=== PATIENT | male | born 1970 | race African-American/Black ===

== ENCOUNTER 2018-07-02 09:03 | Emergency (ER) | payer SELFPAY ==
[2018-07-02] MEDS ORDERED: LIDOCAINE 1%/EPINEPHRINE INJ 20 ML VIAL INJ ONE (10:10)
[2018-07-02] MEDS ORDERED: CEPHALEXIN 500 MG CAPSULE PO ONE (12:17)
[2018-07-02] MEDS ORDERED: DIPH/PERTUSS(ACELL)/TETANUS VAC/PF 0.5 ML SYR (>=10YO) IM ONE (12:17)
--- NOTE | 2018-07-02 12:17 | ER Document Report ---
ED General - General Chief Complaint: Abscess Stated Complaint: POSSIBLE ABSCESS Time Seen by Provider: 07/02/18 09:41 TRAVEL OUTSIDE OF THE [place] IN LAST 30 DAYS: No - HPI Patient complains to provider of: Bilateral shoulder abscesses Notes: Patient with 2 areas on the bilateral deltoids are consistent with an abscess states present for approximately 24-48 hours. Patient denies any IV drug use denies any skin popping. Patient states history of abscesses in the past. Patient otherwise resting comfortably upon my evaluation. - Related Data Allergies/Adverse Reactions: No Known Allergies Allergy (Verified 07/02/18 09:24) Past Medical History - Social History Smoking Status: Current Every Day Smoker Chew tobacco use (# tins/day): No Frequency of alcohol use: Occasional Drug Abuse: Marijuana Family History: Reviewed & Not Pertinent Patient has suicidal ideation: No Patient has homicidal ideation: No Renal/ Medical History: Denies: Hx Peritoneal Dialysis Past Surgical History: Reports: Hx Abdominal Surgery Review of Systems - Review of Systems Constitutional: No symptoms reported EENT: No symptoms reported Cardiovascular: No symptoms reported Respiratory: No symptoms reported Gastrointestinal: No symptoms reported Genitourinary: No symptoms reported Male Genitourinary: No symptoms reported Musculoskeletal: No symptoms reported Skin: Other - Abscess Hematologic/Lymphatic: No symptoms reported Neurological/Psychological: No symptoms reported -: Yes All other systems reviewed and negative Physical Exam - Vital signs Vitals: Temp Pulse Resp BP Pulse Ox 98.9 F 86 20 143/92 H 97 07/02/18 09:07 07/02/18 09:07 07/02/18 09:07 07/02/18 09:07 07/02/18 09:07 Interpretation: Normal - General General appearance: Appears well, Alert - HEENT Head: Normocephalic, Atraumatic Eyes: Normal Pupils: PERRL - Respiratory Respiratory status: No respiratory distress Chest status: Nontender Breath sounds: Normal Chest palpation: Normal - Cardiovascular Rhythm: Regular Heart sounds: Normal auscultation Murmur: No - Abdominal Inspection: Normal Distension: No distension Bowel sounds: Normal Tenderness: Nontender Organomegaly: No organomegaly - Back Back: Normal, Nontender - Extremities General upper extremity: Nontender, Normal color, Normal ROM, Normal temperature. No: Normal inspection - Patient with 2 areas of bilateral deltoids General lower extremity: Normal inspection, Nontender, Normal color, Normal ROM, Normal temperature, Normal weight bearing. No: Shravan's sign - Neurological Neuro grossly intact: Yes Cognition: Normal Orientation: AAOx4 [place] Coma Scale Eye Opening: Spontaneous [place] Coma Scale Verbal: Oriented [place] Coma Scale Motor: Obeys Commands [place] Coma Scale Total: 15 Speech: Normal Motor strength normal: LUE, RUE, LLE, RLE Sensory: Normal - Psychological Associated symptoms: Normal affect, Normal mood - Skin Skin Temperature: Warm Skin Moisture: Dry Skin Color: Normal Course - Re-evaluation Re-evalutation: 07/02/18 20:42 i and d performed as noted pt sent home on kelfex - Vital Signs Vital signs: Temp Pulse Resp BP Pulse Ox 98.8 F 77 18 143/95 H 99 07/02/18 12:48 07/02/18 12:48 07/02/18 12:48 07/02/18 12:48 07/02/18 12:48 Procedures - Incision and Drainage Left Shoulder Type: Simple Anesthetic type: 1% Lidocaine w/epi mL's of anesthetic: 2 Blade size: 11 I&D procedure: Chlorprep applied Incision Method: Incision made by scalpel Amount/type of drainage: 1cc of pus flushed to clear Right Shoulder Type: Simple Anesthetic type: 1% Lidocaine w/epi mL's of anesthetic: 2 Blade size: 11 I&D procedure: Chlorprep applied Incision Method: Incision made by scalpel Amount/type of drainage: 1cc pus Discharge - Discharge Clinical Impression: Abscess of left arm, Abscess of right arm Condition: Good Disposition: HOME, SELF-CARE Instructions: Abscess ([facility]), Cephalexin ([facility]), Post Incision and Drainage Additional Instructions: Your evaluation today shows bilateral abscesses which were drained please take antibiotics as prescribed return to the ER symptoms worsen please keep the wound clean and dry. Prescriptions: Cephalexin Monohydrate [Keflex 500 mg Capsule] 500 mg PO Q6H 7 Days capsule
[2018-07-02 12:51] VITALS: BP 143/95
== END 2018-07-02 12:56 | disposition home or self-care (01) ==
LOC: ER 09:03
DX: L02.414 Cutaneous abscess of left upper limb (principal); L02.413 Cutaneous abscess of right upper limb; F17.200 Nicotine dependence, unspecified, uncomplicated; F12.10 Cannabis abuse, uncomplicated
CPT/HCPCS: 99283; 90471; 90715; 10061; J3490

== ENCOUNTER 2018-09-13 13:17 | Emergency (ER) | payer SELFPAY ==
--- NOTE | 2018-09-13 13:59 | ER Document Report ---
ED Medical Screen (RME) - General Chief Complaint: Abscess Stated Complaint: POSSIBLE SPIDER BITE Time Seen by Provider: 09/13/18 13:57 Mode of Arrival: Ambulatory Information source: Patient Notes: 48-year-old male with hepatitis C, history of IV drug use presents with an abscess on his right hip and left forearm that he noticed 1 week prior to arrival. Patient denies history of MRSA. He states his last IV injection was 6 months ago. He denies fever, chills, nausea, vomiting. I have greeted and performed a rapid initial assessment of this patient. A comprehensive ED assessment and evaluation of the patient, analysis of test results and completion of medical decision making process we will be contacted by additional ED providers. PHYSICAL EXAMINATION: Vital signs reviewed GENERAL: Well-appearing, well-nourished and in no acute distress. LUNGS: No respiratory distress Musculoskeletal: Normal range of motion NEUROLOGICAL: Normal speech, normal gait. PSYCH: Normal mood, normal affect. SKIN: Area of induration, fluctuant and tenderness of the right hip and left elbow. TRAVEL OUTSIDE OF THE [place] IN LAST 30 DAYS: No - HPI Onset: Last week Onset/Duration: Gradual, Persistent Quality of pain: Achy, Throbbing Severity: Moderate Pain Level: 1 Associated Symptoms: denies: Chest pain, Chills, Fever, Hurts to breath, Nausea Exacerbated by: Denies Relieved by: Denies Similar symptoms previously: No Recently seen / treated by doctor: No - Related Data Smoking: Cigarettes Frequency of alcohol use: None Drug Abuse: Heroin - Quit 6 months ago, Marijuana Allergies/Adverse Reactions: No Known Allergies Allergy (Verified 09/13/18 13:24) Past Medical History - Social History Frequency of alcohol use: Occasional Drug Abuse: Marijuana Renal/ Medical History: Denies: Hx Peritoneal Dialysis Past Surgical History: Reports: Hx Abdominal Surgery Physical Exam - Vital signs Vitals: Temp Pulse Resp BP Pulse Ox 99.2 F 95 18 114/69 100 09/13/18 13:46 09/13/18 13:46 09/13/18 13:46 09/13/18 13:46 09/13/18 13:46 Course - Vital Signs Vital signs: Temp Pulse Resp BP Pulse Ox 99.2 F 95 18 114/69 100 09/13/18 13:46 09/13/18 13:46 09/13/18 13:46 09/13/18 13:46 09/13/18 13:46
[2018-09-13 14:58] LABS: ABSOLUTE MONOCYTES (AUTO) 0.9 10^3/uL (0.1-1.4); ABSOLUTE NEUT (AUTO) 5.9 10^3/uL (1.7-8.2); BASOPHILS % (AUTO) 0.4 % (0-2); EOSINOPHILS % (AUTO) 0.5 % (0-6); HEMATOCRIT 43.7 % (37.9-51.0); HEMOGLOBIN 14.5 g/dL (13.5-17.0); LYMPHOCYTES % (AUTO) 22.4 % (13-45); MEAN CORPUSCULAR HEMOGLOBIN 26.3 pg (27.0-33.4); MEAN CORPUSCULAR HGB CONC 33.2 g/dL (32.0-36.0); MEAN CORPUSCULAR VOLUME 79 fl (80-97); MONOCYTES % (AUTO) 10.3 % (3-13); PLATELET COUNT 227 10^3/uL (150-450); RED BLOOD COUNT 5.51 10^6/uL (4.35-5.55); RED CELL DISTRIBUTION WIDTH 13.3 % (11.5-14.0); SEGMENTED NEUTROPHILS % (AUTO) 66.4 % (42-78); TOTAL CELLS COUNTED % (AUTO) 100 %; WHITE BLOOD COUNT 8.9 10^3/uL (4.0-10.5)
[2018-09-13] MEDS ORDERED: CEPHALEXIN 500 MG CAPSULE PO ONE (18:44)
[2018-09-13] MEDS ORDERED: SULFAMETHOXAZOLE/TRIMETHOPRIM 800-160 MG TABLET PO ONE (18:45)
--- NOTE | 2018-09-13 18:48 | ER Document Report ---
ED General - General Chief Complaint: Abscess Stated Complaint: POSSIBLE SPIDER BITE Time Seen by Provider: 09/13/18 13:57 Mode of Arrival: Ambulatory Information source: Patient Notes: 48-year-old male with hepatitis C, history of IV drug use presents with an abscess on his right hip and left forearm that he noticed 1 week prior to arrival. Patient denies history of MRSA. He states his last IV injection was 6 months ago. He denies fever, chills, nausea, vomiting. Patient does reports that he self lanced the abscess on his right hip and left forearm and did have purulent drainage expressed. TRAVEL OUTSIDE OF THE [place] IN LAST 30 DAYS: No - HPI Onset: Last week Onset/Duration: Gradual, Persistent Quality of pain: Throbbing Severity: Moderate Associated symptoms: denies: Body/muscle aches, Chills, Fever, Nausea, Vomiting, Shortness of breath Exacerbated by: Movement Relieved by: Denies Similar symptoms previously: Yes Recently seen / treated by doctor: Yes - Related Data Allergies/Adverse Reactions: No Known Allergies Allergy (Verified 09/13/18 13:24) Past Medical History - General Information source: Patient - Social History Smoking Status: Current Every Day Smoker Cigarette use (# per day): Yes - 10 Smoking Education Provided: Yes - Smoking cessation counseling was provided for 4 minutes at the bedside Frequency of alcohol use: Occasional Drug Abuse: Marijuana Lives with: Friend Family History: Reviewed & Not Pertinent Patient has suicidal ideation: No Patient has homicidal ideation: No - Medical History Medical History: Other - History of IV drug abuse Renal/ Medical History: Denies: Hx Peritoneal Dialysis Infectious Medical History: Reports: Hx Hepatitis Past Surgical History: Reports: Hx Abdominal Surgery Review of Systems - Review of Systems Notes: REVIEW OF SYSTEMS: CONSTITUTIONAL : Denies fever, chills, or sweats. Denies recent illness. Denies weight loss, recent hospitalizations. EENT: Denies visual changes, eye pain. Denies sore throat, oral lesions, difficulty swallowing. CARDIOVASCULAR: Denies chest pain. Denies palpitations. Denies lower extremity edema. RESPIRATORY: Denies cough. Denies shortness of breath, wheezing. GASTROINTESTINAL: Denies abdominal pain or distention. Denies nausea, vomiting, or diarrhea. Denies blood in vomitus, stools, or per rectum. Denies black, tarry stools. Denies constipation. GENITOURINARY: Denies difficulty urinating, painful urination, frequency, blood in urine, testicular pain or penile discharge. MUSCULOSKELETAL: Denies back or neck pain or stiffness. Denies joint pain or swelling. SKIN: + Painful area of induration, fluctuance and purulent discharge of the right hip. Small raised area of the left forearm HEMATOLOGIC : Denies easy bruising or bleeding. LYMPHATIC: Denies swollen glands. NEUROLOGICAL: Denies confusion or altered mental status. Denies loss of consciousness. Denies dizziness or lightheadedness. Denies headache. Denies weakness or paralysis. Denies problems difficulty with ambulation, slurred speech. Denies sensory loss, numbness, or tingling. Denies seizures. PSYCHIATRIC: Denies anxiety or stress. Denies depression, suicidal ideation, or Physical Exam - Vital signs Vitals: Temp Pulse Resp BP Pulse Ox 99.2 F 95 18 114/69 100 09/13/18 13:46 09/13/18 13:46 09/13/18 13:46 09/13/18 13:46 09/13/18 13:46 - Notes Notes: PHYSICAL EXAMINATION: GENERAL: Well-appearing, well-nourished and in no acute distress. HEAD: Atraumatic, normocephalic. EYES: Pupils equal round and reactive to light, extraocular movements intact, sclera anicteric, conjunctiva are normal. ENT: Nares patent, oropharynx clear without exudates. Moist mucous membranes. NECK: Normal range of motion, supple without lymphadenopathy LUNGS: Breath sounds clear to auscultation bilaterally and equal. No wheezes rales or rhonchi. HEART: Regular rate and rhythm without murmurs ABDOMEN: Soft, nontender, nondistended abdomen. No guarding, no rebound. No masses appreciated. Musculoskeletal: Normal range of motion, no pitting or edema. No cyanosis. NEUROLOGICAL: Cranial nerves grossly intact. Normal speech, normal gait. Normal sensory, motor exams PSYCH: Normal mood, normal affect. SKIN: Right hip has an indurated area approximately 3 x 4 with some purulent drainage. Left forearm has a small area of induration without fluctuance, erythema or tenderness. Course - Re-evaluation Re-evalutation: 09/14/18 23:29 48-year-old male presents with an abscess to his right hip an a "spider bite" to his left forearm. Patient reports that prior to arrival he lanced to both areas himself and express purulent drainage from the area. Bedside ultrasound was performed and showed no definitive pocket of pus in either area but on physical exam the left hip does look like an abscess. I&D was performed without any purulent drainage. Patient was advised to place antibiotic ointment into the area, clean with soap and water. He was prescribed Keflex and Bactrim. Advised to return if he developed worsening pain, redness, fever or any other symptoms that concern him. - Vital Signs Vital signs: Temp Pulse Resp BP Pulse Ox 98.8 F 100 18 125/71 100 09/13/18 20:34 09/13/18 20:34 09/13/18 20:34 09/13/18 20:34 09/13/18 20:34 - Laboratory Result Diagrams: 09/13/18 14:40 Laboratory results interpreted by me: 09/13/18 14:40 MCV 79 L MCH 26.3 L Procedures - Incision and Drainage Left Hip Time completed: 23:31 - Area of induration, fluctuance over the right ASIS Type: Simple Anesthetic type: 1% Lidocaine mL's of anesthetic: 8 Blade size: 11 I&D procedure: Betadine prep applied, Shurclens applied, Sterile dressing applied Incision Method: Incision made by scalpel Amount/type of drainage: 1 cc Discharge - Discharge Clinical Impression: Abscess of right hip, Abscess of left forearm Condition: Good Disposition: HOME, SELF-CARE Instructions: Abscess ([facility]), Cephalexin ([facility]), Post Incision and Drainage, Trimethoprim-Sulfa ([facility]) Additional Instructions: You were seen for an abscess that required drainage. Please clean this area with soap and water twice daily and apply a topical antibiotic. Dress the area after each cleaning. Please return if you develop fever, vomiting, the pain at the site worsens, you notice spreading redness from the area, or you have any other symptoms that are concerning to you. Prescriptions: Cephalexin Monohydrate [Keflex 500 mg Capsule] 500 mg PO BID 10 Days #20 capsule Sulfamethoxazole/Trimethoprim [Bactrim Ds Tablet] 1 each PO BID 10 Days #20 tablet
[2018-09-13 20:34] VITALS: BP 125/71
== END 2018-09-13 20:36 | disposition home or self-care (01) ==
LOC: ER 13:17
DX: L02.415 Cutaneous abscess of right lower limb (principal); L02.414 Cutaneous abscess of left upper limb; F17.210 Nicotine dependence, cigarettes, uncomplicated; Z71.6 Tobacco abuse counseling; F12.10 Cannabis abuse, uncomplicated
CPT/HCPCS: 36415; 85025; 87040; 99283; 99406